=== PATIENT | male | born 1950 | race Caucasian/White ===

== ENCOUNTER 2017-12-18 09:19 | Inpatient (IN) | payer BC, OTHER ==
[~2017-12-18] VITALS: Ht 180.3 cm; Wt 102.5 kg
[2017-12-18] MEDS ORDERED: KETOROLAC TROMETHAMINE 30 MG/ML VIAL ONE (09:41)
[2017-12-18] MEDS ORDERED: KETOROLAC TROMETHAMINE 30 MG/ML VIAL IV STA ×2 (09:50→09:55)
[2017-12-18] MEDS ORDERED: HYDROMORPHONE 1MG/1ML INJ IV STA ×2 (10:08→13:17)
[2017-12-18 10:18] LABS: BASOPHILS # (AUTO) 0.1 (0.0-0.1); BASOPHILS % 0.4 % (0.0-1.0); EOSINOPHILS # (AUTO) 0.3 (0.0-0.4); EOSINOPHILS % 1.5 % (0.0-6.0); HEMATOCRIT 45.3 % (38.2-49.6); HEMOGLOBIN 15.5 g/dL (14.0-18.0); LYMPHOCYTES # (AUTO) 3.7 (1.0-3.2); LYMPHOCYTES % 22.6 % (18.0-39.1); MEAN CORPUSCULAR HEMOGLOBIN 27.5 pg (28-32); MEAN CORPUSCULAR HGB CONC 34.2 g/dL (31-35); MEAN CORPUSCULAR VOLUME 80.5 fL (81-99); MONOCYTES % 12.4 % (4.4-11.3); NEUTROPHILS # (AUTO) 10.2 (2.1-6.9); NEUTROPHILS % 62.7 % (38.7-80.0); PLATELET COUNT 350 x10e3/uL (140-360); RED BLOOD COUNT 5.63 x10e6/uL (4.3-5.7); RED CELL DISTRIBUTION WIDTH 16.4 % (11.7-14.4)
[2017-12-18 10:20] LABS: BILIRUBIN,URINE NEGATIVE (NEGATIVE); CLARITY,URINE CLEAR (CLEAR); COLOR,URINE YELLOW (YELLOW); KETONES,URINE NEGATIVE (NEGATIVE); LEUKOCYTE ESTERASE ,URINE TRACE (NEGATIVE); NITRITE,URINE NEGATIVE (NEGATIVE); PROTEIN,URINE DIPSTICK NEGATIVE (NEGATIVE); URINE UROBILINOGEN 0.2 mg/dL (0.2 - 1)
--- NOTE | 2017-12-18 10:28 | Diagnostic Imaging Report ---
PROCEDURE: CT ABDOMEN AND PELVIS WITHOUT CONTRAST COMPARISON:None. INDICATIONS:Left-sided flank pain. TECHNIQUE: Stone protocol Volumetric CT abdomen and pelvis. No intravenous or enteric contrast. Multiplanar reformatted images. DLP: 705.2 FINDINGS: Interstitial scar the lung bases; otherwise, clear. No pleural effusions. Normal heart size. Liver: Normal Gallbladder: 1.6 cm and 1.4 cm stones; otherwise, normal. No bile duct dilation. 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 Adrenal glands: Normal Kidneys: Normal. Specifically, no stones. Urinary bladder: Normal Prostate and seminal vesicles: Normal Bowel: Normal caliber. Normal appendix. Descending and sigmoid colon diverticulosis. Peritoneum: Normal Vasculature: Moderate aortic and mild pelvic atherosclerosis. Normal caliber. Tortuous aorta and iliac arteries. Lymph nodes: Normal Skeleton: Intact. Multilevel degenerative disc disease. Benign sclerosis at the L4 superior endplate. Soft tissues: Fat-containing inguinal hernias (left greater than right). 2 x 1.1 x 4.2 cm lipoma in the left gluteus minimus. CONCLUSION: 1. No nephrolithiasis or other conspicuous etiology for acute left flank pain. 2. Diverticulosis. 3. Cholelithiasis. Dictated by: Stas Sotelo M.D. on 12/18/2017 at 10:28 Electronically approved by: Stas Sotelo M.D. on 12/18/2017 at 10:28
[2017-12-18 10:30] LABS: ALANINE AMINOTRANSFERASE 13 IU/L (0-55); ALBUMIN 3.7 g/dL (3.5-5.0); ALBUMIN/GLOBULIN RATIO 1.1 (0.8-2.0); ALKALINE PHOSPHATASE 77 IU/L (40-150); ANION GAP 13.8 mmol/L (8-16); BLOOD UREA NITROGEN 22 mg/dL (7-26); BUN/CREATININE RATIO 19 (6-25); CALCIUM 9.3 mg/dL (8.4-10.2); CARBON DIOXIDE 24 mmol/L (22-29); CHLORIDE 103 mmol/L (98-107); CREATININE, SERUM 1.18 mg/dL (0.72-1.25); EST GLOMERULAR FILTRATION RATE > 60 ML/MIN (60-); GLUCOSE 116 mg/dL (74-118); POTASSIUM 3.8 mmol/L (3.5-5.1); SODIUM 137 mmol/L (136-145)
[2017-12-18 10:33] LABS: BACTERIA,URINE RARE /HPF; EPITHELIAL CELLS,URINE FEW /LPF; MUCUS,URINE MANY (RARE)
[2017-12-18] MEDS ORDERED: HYDROMORPHONE 1MG/1ML INJ IV NR (12:00)
--- NOTE | 2017-12-18 12:39 | Diagnostic Imaging Report ---
PROCEDURE:CT ABDOMEN AND PELVIS WITH CONTRAST COMPARISON:[facility], CT, CT ABDOMEN/PELVIS WO, 12/18/2017, 9:57. INDICATIONS:Left-sided pain TECHNIQUE: Routine protocol Volumetric CT abdomen and pelvis after administration of 100 mL Isovue-370 intravenous contrast 900 mL enteric water. Multiplanar reformatted images. : 741.55 FINDINGS: Interstitial scar at the lung bases; otherwise, clear lungs. No pleural effusions. Normal heart size. Liver: Normal Gallbladder: Mobile cholelithiasis. The bile duct dilation. 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 Adrenal glands: Normal Kidneys: 9 mm left inferior pole cyst; otherwise, normal. Urinary bladder: Normal Prostate and seminal vesicles: Normal Bowel: Normal caliber. Extensive diverticulosis in the descending and sigmoid colon. There is very minimal wall thickening at the proximal sigmoid (image 64-72, series 2) without regional inflammation. Peritoneum: Normal Vasculature: Moderate atherosclerosis of the abdominal aorta. Tortuous thoracic aorta and iliac arteries with normal caliber. Greater than 50% stenosis of the right common femoral artery secondary to posterior calcified plaque. Lymph nodes: Normal Skeleton: Intact. Multilevel degenerative disc disease. Soft tissues: Bilateral fat containing inguinal hernias (left greater than right). Left gluteus minimus lipoma 2 x 1.4 x 4.2 cm. CONCLUSION: Diverticulosis. There is minimal wall thickening in the proximal sigmoid without significant adjacent inflammation. Findings may represent very early diverticulitis in the appropriate context. No evidence of fulminant diverticulitis. Dictated by: Stas Sotelo M.D. on 12/18/2017 at 12:39 Electronically approved by: Stas Sotelo M.D. on 12/18/2017 at 12:39
[2017-12-18] MEDS ORDERED: SODIUM CHLORIDE 0.9% 50ML 50 ML ONE (13:13)
[2017-12-18] MEDS ORDERED: IOPAMIDOL 370 MG/ML 200 ML INFUS..BTL INJ ONE (13:13)
[2017-12-18 13:15] LABS: CREATINE KINASE 70 IU/L (30-200)
[2017-12-18] MEDS ORDERED: METRONIDAZOLE 500MG/NS 100ML 100 ML IV ONE (13:15)
[2017-12-18] MEDS ORDERED: LEVOFLOXACIN 750MG/D5W 150ML 150 ML IV ONE (13:15)
[2017-12-18] MEDS ORDERED: ONDANSETRON HCL 4 MG ORAL DISINTEGRATING TAB PO STA (13:17)
[2017-12-18 13:23] LABS: AMYLASE 44 U/L (25-125); LIPASE 34 U/L (8-78)
[2017-12-18] MEDS ORDERED: SODIUM CHLORIDE 0.9% 1000ML 1,000 ML IV ONE (13:30)
[2017-12-18] MEDS ORDERED: SODIUM CHLORIDE 0.9% 1000ML 1,000 ML IV SCH (13:40)
[2017-12-18] MEDS ORDERED: LEVOFLOXACIN 500MG/D5W 100ML IV SCH (13:45)
[2017-12-18] MEDS ORDERED: HYDROMORPHONE 1MG/1ML INJ IV PRN (13:45)
[2017-12-18] MEDS ORDERED: ONDANSETRON HCL INJ 2 MG/ML VIAL IV PRN (13:45)
[2017-12-18] MEDS ORDERED: ACETAMINOPHEN 325 MG TAB PO PRN (15:30)
--- OUTSIDE RECORDS SUMMARY | 2017-12-18 15:44 | XMS REPORT ---
Author Author [facility] Address Unknown Phone Unavailable Care Team Providers Care [employer] Name Role Phone RL BOWEN Unavailable Unavailable Problems This patient has no known problems. Allergies, Adverse Reactions, Alerts This patient has no known allergies or adverse reactions. Medications This patient has no known medications. Results Test Description Test Time Test Comments Text Results Atomic Results Result Comments CT ABDOMEN/PELVIS W [place] [address] Patient Name: ALVIN ANDERS MR #: [id number] : 1950 Age/Sex: 67/M Req # : [id number] Adm Physician: Ordered by: RL BOWEN MD Report #: [id number] Location: ER Room/Bed: Procedure: [id number] CT/CT ABDOMEN/PELVIS W Exam Date: 12/18/17 Exam Time : 1204 REPORT STATUS: Signed PROCEDURE: CT ABDOMEN AND PELVIS WITH CONTRAST COMPARISON: [facility], CT, CT ABDOMEN/PELVIS WO, , 9:57. INDICATIONS: Left-sided pain TECHNIQUE: Routine protocol Volumetric CT abdomen and pelvis after administration of 100 mL Isovue-370 intravenous contrast 900 mL enteric water. Multiplanar reformatted images. : 741.55 FINDINGS: Interstitial scar at the lung bases; otherwise, clear lungs. No pleural effusions. Normal heart size. Liver: Normal Gallbladder: Mobile cholelithiasis. The bile duct dilation. 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 Adrenal glands: Normal Kidneys: 9 mm left inferior pole cyst; otherwise, normal. Urinary bladder: Normal Prostate and seminal vesicles: Normal Bowel: Normal caliber. Extensive diverticulosis in the descending and sigmoid colon. There is very minimal wall thickening at the proximal sigmoid (image 64-72, series 2) without regional inflammation. Peritoneum: Normal Vasculature: Moderate atherosclerosis of the abdominal aorta. Tortuous thoracic aorta and iliac arteries with normal caliber. Greater than 50% stenosis of the right common femoral artery secondary to posterior calcified plaque. Lymph nodes : Normal Skeleton: Intact. Multilevel degenerative disc disease. Soft tissues: Bilateral fat containing inguinal hernias (left greater than right) . Left gluteus minimus lipoma 2 x 1.4 x 4.2 cm. CONCLUSION: Diverticulosis. There is minimal wall thickening in the proximal sigmoid without significant adjacent inflammation. Findings may represent very early diverticulitis in the appropriate context. No evidence of fulminant diverticulitis. Dictated by: Marlene Sotelo M.D. on 12/18/2017 at 12:39 Electronically approved by: Marlene Sotelo M.D. on 2017 at 12:39 Dictated By: MARLENE SOTELO MD 1239 Transcribed By: ELAINA on 1239 COPY TO: RL BOWEN MD CT ABDOMEN/PELVIS [place] [address] Patient Name: ALVIN ANDERS MR #: [id number] : 1950 Age/Sex: 67/M Req # : [id number] Adm Physician: Ordered by: RL BOWEN MD Report #: [id number] Location: Room/Bed: Procedure: [id number] CT/CT ABDOMEN/PELVIS WO Exam Date: 12/18/17 Exam Time: 0950 REPORT STATUS: Signed PROCEDURE: CT ABDOMEN AND PELVIS WITHOUT CONTRAST COMPARISON: None. INDICATIONS: Left-sided flank pain. TECHNIQUE: Stone protocol Volumetric CT abdomen and pelvis. No intravenous or enteric contrast. Multiplanar reformatted images. DLP: 705.2 FINDINGS: Interstitial scar the lung bases; otherwise, clear. No pleural effusions. Normal heart size. Liver: Normal Gallbladder: 1.6 cm and 1.4 cm stones; otherwise, normal. No bile duct dilation. 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 Adrenal glands: Normal Kidneys: Normal. Specifically, no stones. Urinary bladder: Normal Prostate and seminal vesicles: Normal Bowel: Normal caliber. Normal appendix. Descending and sigmoid colon diverticulosis. Peritoneum: Normal Vasculature: Moderate aortic and mild pelvic atherosclerosis. Normal caliber. Tortuous aorta and iliac arteries. Lymph nodes: Normal Skeleton : Intact. Multilevel degenerative disc disease. Benign sclerosis at the L4 superior endplate. Soft tissues: Fat-containing inguinal hernias (left greater than right). 2 x 1.1 x 4.2 cm lipoma in the left gluteus minimus. CONCLUSION: 1. No nephrolithiasis or other conspicuous etiology for acute left flank pain. 2. Diverticulosis. 3. Cholelithiasis. Dictated by: Marlene Sotelo M.D. on 12/18/2017 at 10:28 Electronically approved by: Marlene Sotelo M.D. on 12/18/2017 at 10:28 Dictated By: MARLENE SOTELO MD 1028 Transcribed By: ELAINA on 12/18/17 1028 COPY TO: RL BOWEN MD
[2017-12-18] MEDS ORDERED: METRONIDAZOLE 500MG/NS 100ML 100 ML IV SCH (18:00)
[2017-12-18] MEDS ORDERED: METRONIDAZOLE 500MG/NS 100ML IV SCH (18:00)
--- NOTE | 2017-12-18 18:34 | History and Physical ---
A patient of Dr. Mckeon, Dr. Tanner, Dr. Da Silva. Admitted with severe left flank pain, thought he had a kidney problem. He has a history of polycythemia rubra vera, apparently was treated with progressive phlebotomies. History of BPH, elevated PSA, history of testosterone injections. Knee surgery, splenectomy after a boxing injury 50 years ago. Born in [place], [place]. FAMILY HISTORY: Noncontributory. Ex-smoker. Mail Agent, works at . History of hypertension, hyperlipidemia. Takes a diuretic, allergy pills. Denies visual problems. Has mild dyspnea on exertion, able to play golf. No cardiovascular problems. No history of GI problems. Seasonal allergies. PHYSICAL EXAMINATION GENERAL: He is a tall white male, burly, in no acute distress, looks his stated age. VITAL SIGNS: Temperature 97, pulse 69, respirations 18, blood pressure 104/67. HEAD: Normocephalic, atraumatic. EYES: Extraocular movements intact. LUNGS: Clear. HEART: Regular rhythm. ABDOMEN: Nontender. EXTREMITIES: Nonedematous. BACK: No CVA tenderness. IMPRESSION: Possible diverticular disease. Flank pain suspicious for renal colic. Urinalysis reveals hematuria and pyuria, rare bacteria. Will request urine culture. Continue the therapy of possible diverticular disease suggested on the CT of the abdomen. Renal colic and urine infection seems more likely. There is evidence of cholelithiasis and diverticulosis on CT. There are also inguinal hernias, and a spleno is noted. Job#: [id number] FIGUEROA
--- NOTE | 2017-12-18 19:44 | Consultation ---
DATE OF CONSULTATION: December 18, 2017 REFERRING PHYSICIAN: Dr. Tapia. HISTORY OF PRESENT ILLNESS: The patient is a 67-year-old male presenting with complaints of left flank pain. Says it came on suddenly earlier today and it was very severe. Says the pain is less now that he has been medicated. He has no abdominal pain. No nausea or vomiting. He has not had similar pains in the past. Evaluation with CT scan of the abdomen and pelvis revealed some questionable wall thickening in the sigmoid colon but no inflammation. He does have diverticular disease. No other abnormalities were noted, specifically no kidney stone was seen. PAST MEDICAL HISTORY: Otherwise unremarkable. He does see a urologist for problems. CURRENT MEDICATIONS: None. ALLERGIES: NO KNOWN DRUG ALLERGIES. PAST SURGICAL HISTORY: None. FAMILY HISTORY: Noncontributory. SOCIAL HISTORY: Patient does not smoke cigarettes, rarely drinks alcohol. REVIEW OF SYSTEMS: As stated above. Had no fever. No weight loss. No shortness of breath and no chest pain. PHYSICAL EXAMINATION: VITALS: Normal. GENERAL: The patient is awake and alert and in no distress. HEENT: Reveals no scleral icterus. NECK: Has no masses. No bruits are heard. LUNGS: Equal breath sounds and clear bilaterally. CARDIAC: Regular rate and rhythm. No murmur. ABDOMEN: Soft with no tenderness. No mass. No organomegaly. No signs of peritonitis. EXTREMITIES: No edema. NEUROLOGIC: Grossly intact. LABORATORY DATA: White blood count is 16.3. Hemoglobin and hematocrit are normal. Differential is normal. Platelet count is normal. Chemistries are essentially normal. Urinalysis significant for 11-20 white cells and 6-10 red cells. ASSESSMENT: A 67-year-old male with left flank pain has seems to be better now. There are no abdominal findings. No findings of acute abdomen. No indications for any surgical intervention. Thank you for asking see to see Mr. Garcia. Job#: [id number]
[2017-12-18] MEDS ORDERED: HEPARIN SOD (PORCINE) 5,000 UNIT/ML VIAL SC SCH (21:00)
[2017-12-19] MEDS ORDERED: LEVOFLOXACIN 500MG/D5W 100ML 100 ML IV SCH (09:00)
== END 2017-12-18 19:50 | disposition left against medical advice (07) | DRG 392 ==
LOC: ER 09:19 → MED/SURG 15:32 → ERHOLD 15:40 → UNDOADMIN 15:40 → ER 18:02
PROVIDERS: ADMIT Internal Medicine Gastroenterology; ATTEND Internal Medicine Gastroenterology
DX: R10.12 Left upper quadrant pain (principal); K57.30 Diverticulosis of large intestine without perforation or abscess without bleeding; K80.20 Calculus of gallbladder without cholecystitis without obstruction; R31.9 Hematuria, unspecified; N23 Unspecified renal colic; E78.00 Pure hypercholesterolemia, unspecified; D45 Polycythemia vera
CPT/HCPCS: 36415; 74176; 74177; 80053; 81001; 82150; 82550; 82553; 83690; 84484; 85025; 87040; 87086; 93005; 99284; J1170; J1885; J7030; Q9967